=== PATIENT | male | born 1965 | race Caucasian/White ===

== ENCOUNTER 2019-01-21 13:05 | Emergency (ER) | payer BC, OTHER ==
--- NOTE | 2019-01-21 13:25 | ER Report ---
History and Physical Time Seen By MD: 13:10 Hx. of Stated Complaint: presents with area of circular redness to r inner calf, started yesterday AM, went to urgent care and placed on doxycycline. States worse from yesterday. Chills/body aches. HPI/ROS CHIEF COMPLAINT: Possible tick bite HISTORY OF PRESENT ILLNESS: This is a 53-year-old male who presents to the emergency department for possible cellulitis. Patient states that he was in [place] beginning of this month, on January 02 he was camping and had a tick that he noted to the right medial calf, removed the tick. Then he returned to [place], the other day noticed a small red [place] in the area where the tick was located, went to urgent care, the spot was read however was relatively small maybe dime- sized, was started on a 14 day course of doxycycline. Today he states the erythema and looks to be like the start of cellulitis is larger, with some surrounding warmth and edema. He also states that after the tick was removed shortly thereafter he noticed that there were some blisters in the area, he did scratch them as he also thought there was maybe some exposure from poison james. He states yesterday he felt subjectively warm like he had a fever, and achy. No other rashes. No chest pain or shortness of breath. No nausea or vomiting. REVIEW OF SYSTEMS: Respiratory: No cough, no dyspnea. Cardiovascular: No chest pain, no palpitations. Gastrointestinal: No vomiting, no abdominal pain. Musculoskeletal: No back pain. Integumentary: As above. Allergies: Coded Allergies: No Known Drug Allergies (Unverified , 01/21/19) Home Meds Active Scripts Doxycycline Hyclate (DOXYCYCLINE HYCLATE) 100 Mg Tablet, 100 MG PO BID for 12 Days, #24 TAB 0 Refills Prov:SHARMAINE UGARTE [employer]-BC 01/21/19 Reported Medications Doxycycline Hyclate (DOXYCYCLINE HYCLATE) 100 Mg Capsule, 100 MG PO BID, CAPSULE 01/21/19 Past Medical/Surgical History The patient has no significant past medical or surgical history. Reviewed Nurses Notes: Yes Hx Substance Use Disorder: No Hx Alcohol Use: No Constitutional Vital Sign - Last 24 Hours 01/21/19 01/21/19 13:19 14:56 Temp 99.1 Pulse 88 88 Resp 18 18 B/P (MAP) 121/86 124/77 (93) Pulse Ox 94 99 O2 Delivery Room Air Physical Exam General Appearance: The patient is alert, has no immediate need for airway protection and no current signs of toxicity. Eyes: Pupils equal and round no injection. Respiratory: Chest is non tender, lungs are clear to auscultation. Cardiac: regular rate and rhythm. Gastrointestinal: Abdomen is soft and non tender, no masses, bowel sounds normal. Musculoskeletal: Neck: Neck is supple and non tender. Extremities have full range of motion and are non tender. Skin: There is a large purplish circular area with the beginning of a cellulitic infection as well some surrounding erythema to the medial aspect of the right lower leg. DIFFERENTIAL DIAGNOSIS: After history and physical exam differential diagnosis was considered for DVT, cellulitis, spider bite, tick bite. Medical Decision Making EKG/Imaging Imaging PATIENT NAME: Master Kaur : 1965 MR: [id number] V: [id number] EXAM DATE: ORDERING PHYSICIAN: SHARMAINE UGARTE TECHNOLOGIST: Location: [facility] [place] Patient: Master Kaur : 1965 Visit/Account:[id number] Date of Sevice: 01/21/2019 Venous Doppler ultrasound right lower extremity Indication: Redness and swelling. Recent tick bite.. Comparison: None Available Findings: Duplex Doppler and color flow imaging was performed. The common femoral, femoral, and popliteal veins are all patent and compressible with normal Doppler wave forms. There are normal responses to augmentation. The posterior tibial and peroneal veins are patent in the calf. The proximal greater saphenous vein is also normal. In the area of concern in the medial subcutis tissues of the right lower leg is a focal ill-defined area of echogenicity with small amount of fluid. There is mild increased blood flow. There is no well-defined abscess or mass. IMPRESSION: 1. No evidence of deep venous thrombosis of the right lower extremity. 2. In the area of concern in the medial subcutaneous tissues of the right lower leg is a area of ill-defined prominence with mild fluid and mild increased blood flow. This likely due to acute inflammation with focal edema. There is no defined fluid collection or mass. Suggest follow-up clinically. If continues, then reevaluation. Report Dictated By: Dimitri Taylor at 01/21/2019 2:28 PM Report E-Signed By: Dimitri Taylor at 01/21/2019 2:32 PM [id number] ED Course/Re-evaluation ED Course The patient was admitted to a room. A history and physical obtained. Di fferential diagnoses were considered. An ultrasound of the right lower extremity was negative for DVT. I did review the results with patient. As the patient is on doxycycline, I did tell him this is the best medication for tick bite, as well as an underlying cellulitic infection. He is currently on a 14 day course, I did extend it up to 21 day course home as he is having some chills, no other rashes noted. Patient will continue to monitor closely, follow up with his primary care provider or return to ER for any other concerns. Patient was in agreement with this plan care and discharged home. Decision to Disposition Date: Jan 21, 2019 Decision to Disposition Time: 14:47 Depart Departure Latest Vital Signs Vital Signs Date Time Temp Pulse Resp B/P (MAP) Pulse Ox O2 Delivery O2 Flow Rate FiO2 01/21/19 14:56 88 18 124/77 (93) 99 01/21/19 13:19 99.1 Room Air Impression: Primary Impression: Tick bite of right lower leg Condition: Improved Disposition: HOME OR SELF-CARE New Scripts Doxycycline Hyclate (DOXYCYCLINE HYCLATE) 100 Mg Tablet 100 MG PO BID for 12 Days, #24 TAB 0 Refills Prov: SHARMAINE UGARTE [employer]-BC 01/21/19 Patient Instructions: Cellulitis (ED), Tick Bite (ED) Additional Instructions: Continue to monitor the wound as we discussed. There was no indication of an abscess, DVT or necrosis. Continue taking the doxycycline as prescribed. Be sure to drink plenty of water, especially if you have fevers or an elevated heart rate. Get plenty of rest. Keep your right leg elevated to the level of the heart whenever possible. Follow-up with your primary care provider within one to 2 weeks for reevaluation. Return to the ER for any other concerns or worsening symptoms. Problem Qualifiers Primary Impression: Tick bite of right lower leg Encounter type: initial encounter Qualified Codes: S80.861A - Insect bite (nonvenomous), right lower leg, initial encounter; W57.XXXA - Bitten or stung by nonvenomous insect and other nonvenomous arthropods, initial encounter SHARMAINE UGARTE-BC Jan 21, 2019 13:25
[2019-01-21] MEDS ORDERED: DOXY-181 PO (13:27)
[2019-01-21] MEDS ORDERED: DOXY-179 PO (14:38)
--- NOTE | 2019-01-21 14:40 | RADIOLOGY IMAGING REPORT ---
FACILITY: [facility] PATIENT NAME: Master Kaur : 1965 MR: [id number] V: [id number] EXAM DATE: ORDERING PHYSICIAN: SHARMAINE UGARTE TECHNOLOGIST: Location: [facility] Patient: Master Kaur : 1965 Visit/Account:[id number] Date of Sevice: 01/21/2019 Venous Doppler ultrasound right lower extremity Indication: Redness and swelling. Recent tick bite.. Comparison: None Available Findings: Duplex Doppler and color flow imaging was performed. The common femoral, femoral, and popl iteal veins are all patent and compressible with normal Doppler wave forms. There are normal respons es to augmentation. The posterior tibial and peroneal veins are patent in the calf. The proximal greater saphenous vein i s also normal. In the area of concern in the medial subcutis tissues of the right lower leg is a focal ill-defined a lola of echogenicity with small amount of fluid. There is mild increased blood flow. There is no well- defined abscess or mass. IMPRESSION: 1. No evidence of deep venous thrombosis of the right lower extremity. 2. In the area of concern in the medial subcutaneous tissues of the right lower leg is a area of ill- defined prominence with mild fluid and mild increased blood flow. This likely due to acute inflammati on with focal edema. There is no defined fluid collection or mass. Suggest follow-up clinically. If c ontinues, then reevaluation. Report Dictated By: Dimitri Taylor at 01/21/2019 2:28 PM Report E-Signed By: Dimitri Taylor at 01/21/2019 2:32 PM WSN:[id number]
[2019-01-21 14:56] VITALS: BP 124/77
== END 2019-01-21 15:05 | disposition home or self-care (01) ==
LOC: ER 13:32
DX: S80.861A Insect bite (nonvenomous), right lower leg, initial encounter (principal); R23.8 Other skin changes; W57.XXXA Bitten or stung by nonvenomous insect and other nonvenomous arthropods, initial encounter
CPT/HCPCS: 99284